=== PATIENT | male | born 1985 | race Caucasian/White ===

== ENCOUNTER 2022-09-09 15:17 | Inpatient (IN) | payer OTHER ==
[2022-09-09 15:43] VITALS: BMI 19.2
[2022-09-09] MEDS ORDERED: NICOTINE 10 MG CARTRIDGE (INHALER) IH PRN (18:04)
[2022-09-09] MEDS ORDERED: guaiFENesin 600 MG TABLET.ER (FP) PO PRN (18:04)
[2022-09-09] MEDS ORDERED: DICYCLOMINE HCL 10 MG CAPSULE PO PRN (18:04)
[2022-09-09] MEDS ORDERED: IBUPROFEN 600 MG TABLET (FP) PO PRN (18:04)
[2022-09-09] MEDS ORDERED: POLYETHYLENE GLYCOL (HEALTHYLAX) 3350 17 GM PACKET PO PRN (18:04)
[2022-09-09] MEDS ORDERED: NALOXONE HCL 0.4 MG/ML VIAL IM PRN (18:04)
[2022-09-09] MEDS ORDERED: IBUPROFEN 400 MG TABLET (FP) PO PRN (18:04)
[2022-09-09] MEDS ORDERED: MAGNESIUM HYDROX 2400MG/30ML ORAL SUSPENSION 30 ML CUP PO PRN (18:04)
[2022-09-09] MEDS ORDERED: LOPERAMIDE HCL 2 MG CAPSULE PO PRN (18:04)
[2022-09-09] MEDS ORDERED: BISMUTH SUBSALICYLATE 524 MG/30 ML PO PRN (18:04)
[2022-09-09] MEDS ORDERED: ONDANSETRON *ODT* 4 MG TABLET SL PRN (18:04)
[2022-09-09] MEDS ORDERED: NALOXONE HCL (KLOXXADO) 8 MG SPRAY NS PRN (18:04)
[2022-09-09] MEDS ORDERED: MAG HYDROX/AL HYDROX/SIMETH 30 ML UNIT-DOSE CUP PO PRN (18:04)
[2022-09-09] MEDS ORDERED: ACETAMINOPHEN 325 MG TABLET (FP) PO PRN (18:04)
[2022-09-09] MEDS ORDERED: BENZOCAINE/MENTHOL (CHLORASEPTIC ) LOZENGE MM PRN (18:04)
[2022-09-09] MEDS ORDERED: BENZONATATE 200 MG CAPSULE PO PRN (18:04)
[2022-09-09] MEDS ORDERED: methaDONE HCL 10 MG TABLET (FOR DETOX USE ONLY) PO ONE (19:00)
[2022-09-09] MEDS: cloNIDine HCL 0.1 MG TABLET PO PRN (19:50)
[2022-09-09] MEDS ORDERED: MELATONIN 5 MG TABLETS PO SCH (22:00)
[2022-09-09] MEDS: THIAMINE HCL 100 MG TABLET (FP) PO SCH (22:29)
[2022-09-09] MEDS: hydrOXYzine PAMOATE 25 MG CAPSULE (FP) PO PRN (22:32)
[2022-09-09] MEDS: METHOCARBAMOL 500 MG TABLET PO PRN (22:32)
[2022-09-09] MEDS: RIVAROXABAN 20 MG TABLET PO SCH (23:31)
[2022-09-10] MEDS: hydrOXYzine PAMOATE 25 MG CAPSULE (FP) PO PRN (09:34)
[2022-09-10] MEDS: PRENATAL VITAMINS W/ FOLIC ACID TABLET (FP) PO SCH (09:34)
[2022-09-10] MEDS: METHOCARBAMOL 500 MG TABLET PO PRN ×2 (09:34→22:16)
[2022-09-10 15:32] LABS: HEMOGLOBIN 14.1 GM/dL (11.7-16.9); MCH 28.9 pg (25.7-33.7); MCHC 34.5 g/dl (32.0-35.9); MEAN CELL VOLUME 83.9 fl (80-96); MEAN PLT VOLUME 10.2 fl (7.5-11.1); PLATELET COUNT 150 10^3/uL (134-434); RBC 4.89 M/mm3 (4.00-5.60); RDW 13.7 % (11.9-15.9); WHITE BLOOD COUNT 7.2 K/mm3 (4.0-10.0)
[2022-09-10 15:52] LABS: CALCIUM 9.2 mg/dL (8.5-10.1)
[2022-09-10 15:53] LABS: ALBUMIN 3.7 g/dl (3.4-5.0); BLOOD UREA NITROGEN 14.9 mg/dL (7-18)
[2022-09-10 15:56] LABS: CREATININE 0.8 mg/dL (0.55-1.3)
[2022-09-10 15:57] LABS: BILIRUBIN,TOTAL 0.4 mg/dL (0.2-1); TOT PROT 6.8 g/dl (6.4-8.2)
[2022-09-10] MEDS: RIVAROXABAN 20 MG TABLET PO SCH (17:27)
[2022-09-10] MEDS: MELATONIN 5 MG TABLETS PO SCH (22:14)
[2022-09-10] MEDS: THIAMINE HCL 100 MG TABLET (FP) PO SCH (22:15)
[2022-09-11] MEDS ORDERED: methaDONE HCL 10 MG TABLET (FOR DETOX USE ONLY) PO ONE (10:00)
[2022-09-11] MEDS: PRENATAL VITAMINS W/ FOLIC ACID TABLET (FP) PO SCH (10:08)
[2022-09-11] MEDS: RIVAROXABAN 20 MG TABLET PO SCH (17:49)
[2022-09-11] MEDS: cloNIDine HCL 0.1 MG TABLET PO PRN (22:12)
[2022-09-11] MEDS: THIAMINE HCL 100 MG TABLET (FP) PO SCH (22:12)
[2022-09-11] MEDS: MELATONIN 5 MG TABLETS PO SCH (22:12)
[2022-09-11] MEDS: METHOCARBAMOL 500 MG TABLET PO PRN (22:12)
[2022-09-12] MEDS: METHOCARBAMOL 500 MG TABLET PO PRN (10:15)
[2022-09-12] MEDS: PRENATAL VITAMINS W/ FOLIC ACID TABLET (FP) PO SCH (10:15)
[2022-09-12] MEDS: hydrOXYzine PAMOATE 25 MG CAPSULE (FP) PO PRN (10:15)
[2022-09-12] MEDS: RIVAROXABAN 20 MG TABLET PO SCH (17:36)
[2022-09-12] MEDS: MELATONIN 5 MG TABLETS PO SCH (22:11)
[2022-09-12] MEDS: THIAMINE HCL 100 MG TABLET (FP) PO SCH (22:11)
[2022-09-13 09:35] VITALS: BP 138/75; PULSE 62; RESP 18; TEMP 97.3
[2022-09-13] MEDS ORDERED: methaDONE HCL 10 MG TABLET (FOR DETOX USE ONLY) PO ONE (10:00)
[2022-09-13] MEDS: PRENATAL VITAMINS W/ FOLIC ACID TABLET (FP) PO SCH (10:03)
== END 2022-09-13 11:18 | disposition home or self-care (01) | DRG 897 ==
LOC: YASAS 15:17 → Y6N 19:15
PROVIDERS: ADMIT Allergy & Immunology; ATTEND Surgery
PROC: HZ2ZZZZ Detoxification Services for Substance Abuse Treatment (ICD-10-PCS; principal; 2022-09-09)
DX: F11.23 Opioid dependence with withdrawal (principal); F14.20 Cocaine dependence, uncomplicated; F19.282 Other psychoactive substance dependence with psychoactive substance-induced sleep disorder; F17.210 Nicotine dependence, cigarettes, uncomplicated; K21.9 Gastro-esophageal reflux disease without esophagitis; G80.9 Cerebral palsy, unspecified; M41.9 Scoliosis, unspecified; R26.89 Other abnormalities of gait and mobility; Z86.718 Personal history of other venous thrombosis and embolism; Z86.19 Personal history of other infectious and parasitic diseases; Z88.0 Allergy status to penicillin
CPT/HCPCS: 36415; 80053; 85027; 86780; C9803-CS; U0003; U0005